=== PATIENT | female | born 2000 | race Caucasian/White ===

== ENCOUNTER 2024-10-16 06:56 | Outpatient (REF) | payer OTHER, SELFPAY ==
--- NOTE | ~2024-10-16 | MR_ITS ---
EXAMINATION: MR LUMBAR SPINE WITHOUT CONTRAST CLINICAL INFORMATION: Low back pain. COMPARISON: None available. TECHNIQUE: MRI of the lumbar spine was obtained using routine sequences without contrast. FINDINGS: Last rib-bearing vertebra labeled T12. No bone marrow STIR signal abnormality. Decreased intervertebral disc height and signal, L5-S1. Normal alignment. Conus medullaris ends at intervertebral disc L1-2 without signal abnormality. T12-L1: No disc herniation. No neuroforamina stenosis. L1-2: No disc herniation. No neuroforamina stenosis. L2-3: No disc herniation. No neuroforamina stenosis. L3-4: No disc herniation. No neuroforamina stenosis. L4-5: No disc herniation. Broad-based disc bulging. No neuroforamina stenosis. L5-S1: There is a broad-based right subarticular disc herniation abutting the right S1 nerve root on its lateral recess. Bilateral neuroforamina narrowing encroaching the L5 nerve roots. No prevertebral compartment hematoma, mass or fluid collection. 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 MR/MR lumbar spine wo con IMPRESSION: Broad-based right subarticular disc herniation at L5-S1 abutting the right S1 nerve root. Bilateral neuroforamina narrowing at L5-S1 encroaching the L5 exiting nerve roots. Broad-based disc bulging at L4-5. Electronically signed by: Taj Anglin MD 10/16/2024 08:12 AM EDT
== END 2024-10-16 06:57 | disposition home or self-care (01) ==
LOC: HO.MRI 06:56
PROVIDERS: Visit Provider Student in an Organized Health Care Education/Training Program
DX: M54.50 Low back pain, unspecified (principal)
CPT/HCPCS: 72148

== ENCOUNTER → 2024-10-16 07:10 | Outpatient (BNV) | payer OTHER, SELFPAY | PROVIDERS: Visit Provider Radiology Diagnostic Radiology | DX: M48.062 Spinal stenosis, lumbar region with neurogenic claudication (principal) | CPT/HCPCS: 72148 ==